=== PATIENT | male | born 1955 | race Caucasian/White ===

== ENCOUNTER 2024-04-22 14:30 | Emergency (ER) | payer MEDICARE, OTHER ==
[~2024-04-22] VITALS: Ht 180.3 cm; Wt 86.4 kg
[2024-04-22 15:48] VITALS: BP 134/80; PULSE 88; RESP 18; TEMP 97.8; O2SAT 98
== END 2024-04-22 15:49 | disposition home or self-care (01) ==
LOC: ER 14:30
DX: S60.212A Contusion of left wrist, initial encounter (principal); X58.XXXA Exposure to other specified factors, initial encounter; Z88.8 Allergy status to other drugs, medicaments and biological substances; Y93.89 Activity, other specified; Y92.89 Other specified places as the place of occurrence of the external cause; Y99.8 Other external cause status
CPT/HCPCS: 29125; 73110; 99283; A4565

== ENCOUNTER 2024-08-14 16:11 | Emergency (ER) | payer MEDICARE, OTHER ==
[~2024-08-14] VITALS: Ht 180.3 cm; Wt 96.8 kg
[2024-08-14] MEDS: naproxen 500mg tablet PO ONE (21:44)
[2024-08-14 21:49] VITALS: BP 134/82; PULSE 90; RESP 14; TEMP 99; O2SAT 97
== END 2024-08-14 21:51 | disposition home or self-care (01) ==
LOC: ER 16:11
DX: M54.9 Dorsalgia, unspecified (principal); F17.200 Nicotine dependence, unspecified, uncomplicated; Z88.6 Allergy status to analgesic agent; Z59.00 Homelessness unspecified
CPT/HCPCS: 99285

== ENCOUNTER 2024-11-10 19:03 | Emergency (ER) | payer MEDICARE ==
[~2024-11-10] VITALS: Ht 180.3 cm; Wt 86.4 kg
[2024-11-10] MEDS: acetaminophen 325mg tablet PO ONE (20:57)
[2024-11-10 21:41] VITALS: BP 128/72; PULSE 80; RESP 20; TEMP 98.6; O2SAT 99
== END 2024-11-10 21:43 | disposition home or self-care (01) ==
LOC: ER 19:04
DX: M79.672 Pain in left foot (principal); M79.671 Pain in right foot; M79.89 Other specified soft tissue disorders; Z88.6 Allergy status to analgesic agent
CPT/HCPCS: 99282; 99283